=== PATIENT | male | born 1995 | race Caucasian/White ===

== ENCOUNTER 2019-03-29 21:59 | Emergency (ER) | payer SELFPAY ==
[~2019-03-29] VITALS: Ht 180.3 cm; Wt 104.3 kg
[2019-03-30] MEDS ORDERED: PROAIR HFA8.5 GM INH (00:01)
[2019-03-30] MEDS ORDERED: PREDNISONE20 M1 PO (00:01)
== END 2019-03-30 00:15 | disposition home or self-care (01) ==
LOC: ED 21:59
DX: B34.9 Viral infection, unspecified (principal); F17.200 Nicotine dependence, unspecified, uncomplicated